=== PATIENT | male | born 1960 | race African-American/Black ===

== ENCOUNTER 2020-01-11 15:46 | Emergency (ER) | payer MEDICAID, OTHER ==
[~2020-01-11] VITALS: Ht 182.9 cm; Wt 95.0 kg
[2020-01-11 16:52] LABS: BASOPHILS % 0.7 % (0.0-2.0); HEMATOCRIT. 38.3 % (42.0-52.0); MEAN CORPUSCULAR HEMOGLOBIN 30.5 pg (28.0-32.0); MEAN CORPUSCULAR VOLUME 89.8 fL (80.0-94.0); MEAN PLATELET VOLUME 8.8 fl (7.4-10.4); MONOCYTES % 5.5 % (2.0-8.0); NEUTROPHILS % 70.8 % (40.0-76.0); PLATELET 163 x1000/uL (130-400); RED BLOOD CELL COUNT 4.27 mill/uL (4.7-6.1); RED CELL DISTRIBUTION WIDTH 14.1 % (11.6-14.6)
[2020-01-11 16:57] LABS: CHLORIDE 112 mEq/L (98-107)
[2020-01-11 17:01] LABS: ETHANOL BLOOD < 10 mg/dL
[2020-01-11 17:06] LABS: CREATINE KINASE 155 IU/L (39-308)
[2020-01-11 17:08] LABS: CREATINE KINASE MB FRACTION 1.1 ng/mL (0.5-3.6)
[2020-01-11 18:23] LABS: *AMPHETAMINES SCREEN URINE NEGATIVE (NEGATIVE); *BARBITURATES SCREEN URINE NEGATIVE (NEGATIVE); *BENZODIAZEPINES SCREEN URINE NEGATIVE (NEGATIVE); *COCAINE SCREEN URINE NEGATIVE (NEGATIVE); METHADONE URINE SCREEN NEGATIVE (NEGATIVE); OPIATES URINE SCREEN NEGATIVE (NEGATIVE)
[2020-01-11 18:24] LABS: CANNABINOID URINE SCREEN PRESUMTIVE POSITIVE (NEGATIVE); PHENCYCLIDINE URINE SCREEN NEGATIVE (NEGATIVE)
[2020-01-11 21:34] VITALS: BP 135/88
== END 2020-01-11 21:36 | disposition home or self-care (01) ==
LOC: ER 15:46
DX: G62.9 Polyneuropathy, unspecified (principal)
CPT/HCPCS: 36415; 71045; 80053; 80305; 80320; 82550; 82553; 83735; 84484; 85025; 93005; 99285; G0480